=== PATIENT | female | born 1945 | race Asian ===

== ENCOUNTER 2019-04-16 17:56 | Inpatient (IN) | payer MEDICARE, MEDICAID ==
[~2019-04-16] VITALS: Ht 154.9 cm; Wt 61.7 kg
--- NOTE | 2019-04-16 18:00 | NUR ---
pt was given ativan/haldol/benadryl [facility]. pt lethargic.
[2019-04-16] MEDS ORDERED: IBUP-1953 PO (18:04)
[2019-04-16] MEDS ORDERED: ONDA4TAB5 PO (18:05)
--- NOTE | 2019-04-16 18:18 | NUR ---
CALLED NURSING ENVIRONMENTAL PROFESSIONAL, ISABEL Isaac, REQUESTED FOR SITTER FOR SAFETY PRECAUTIONS. INFORMED NONE AVAILABLE AT THIS TIME.
--- NOTE | 2019-04-16 18:48 | NUR ---
pt transfered to u.
--- NOTE | 2019-04-16 19:00 | NUR ---
Patient is a 73 year old female, brought in to the hospital by ambulance from [facility]. Patient is admitted on a 5150 for DTS. Patient brought self to the ER on advice from her PCP. Statements were made such as " I just cant control myself " " usually it goes away but I feel worse and worse'. Patient has been having increased suicidal thoughts with a plan of taking an overdose of pills. Upon face to face evaluation, patient admits to having suicidal thoughts.Patient has poor eye contact, and stated " I am too tired to talk right now. I am cold and I just want to sleep". Speech is slow and patient noted to mumble. V.S. are stable, Patient appears clean and well groomed. Suicide precautions are in place, with frequent head checks. Patients rights handbook and advisement given. No acute distress noted, continuing to monitor for safety. Patient declined having any family notified of the admission at this time.
[2019-04-16] MEDS ORDERED: TEMAZEPAM 7.5 MG CAPSULE PO PRN (20:00)
[2019-04-16] MEDS ORDERED: ACETAMINOPHEN 325 MG TABLET PO PRN ×2 (20:00)
[2019-04-16] MEDS ORDERED: CLONAZEPAM 0.5 MG TABLET PO PRN (20:00)
[2019-04-16] MEDS ORDERED: MAG HYDROX/AL HYDROX/SIMETH 30 ML LIQUID UDC PO PRN (20:00)
[2019-04-16] MEDS ORDERED: MAGNESIUM HYDROXIDE 30 ML LIQUID UDC PO PRN (20:00)
[2019-04-16] MEDS ORDERED: BLOOD SUGAR DIAGNOSTIC 1 EACH STRIP VI ONE (20:00)
[2019-04-16 20:16] VITALS: BP 102/50
[2019-04-16] MEDS: DOCUSATE SODIUM 100 MG CAPSULE PO SCH (21:00)
--- NOTE | 2019-04-17 05:18 | NUR ---
Patient slept 7.15 hours and is still asleep. Frequent monitoring during the night to assure patient safety. No acute distress , and no verbalization of wanting to hurt herself. Up one time to use the bathroom, steady gait noted. Continuing to monitor closely.
[2019-04-17 07:16] LABS: BASOPHILS # (AUTO) 0.1 K/uL (0.0-8.0); BASOPHILS % (AUTO) 1.1 % (0.0-2.0); EOSINOPHILS # (AUTO) 0.3 K/uL (0.0-0.7); EOSINOPHILS % (AUTO) 5.5 % (0.0-7.0); HEMATOCRIT 39.6 % (31.2-41.9); HEMOGLOBIN 13.2 g/dL (10.9-14.3); LYMPHOCYTES # (AUTO) 1.9 K/uL (20.0-40.0); LYMPHOCYTES % (AUTO) 38.6 % (20.5-51.5); MEAN CORPUSCULAR HEMOGLOBIN 30.7 uug (24.7-32.8); MEAN CORPUSCULAR HGB CONC 33 g/dL (32.3-35.6); MEAN CORPUSCULAR VOLUME 92.1 fL (75.5-95.3); MONOCYTES # (AUTO) 0.4 K/uL (2.0-10.0); MONOCYTES % (AUTO) 8.8 % (0.0-11.0); NEUTROPHILS # (AUTO) 2.3 K/uL (1.8-8.9); PLATELET COUNT (AUTO) 201 K/uL (179-408)
--- NOTE | 2019-04-17 07:36 | NUR ---
GPS: RECEIEVED PATIENT ASLEEP ON BED, AOX3, PATIENT IN NO DISTRESS AT THIS MOMENT
[2019-04-17 07:41] VITALS: BP 90/51
[2019-04-17 07:44] LABS: THYROID STIMULATING HORMONE 1.992 mIU/mL (0.358-3.740)
[2019-04-17 07:55] LABS: BILIRUBIN,TOTAL 0.7 mg/dL (0.2-1.0); CREATININE 0.8 mg/dL (0.6-1.3); MAGNESIUM 2.4 mg/dL (1.8-2.4); PHOSPHOROUS 3.5 mg/dL (2.5-4.9); POTASSIUM 4.1 mmol/L (3.5-5.1); TOTAL PROTEIN, SERUM 6.6 g/dL (6.4-8.2)
[2019-04-17] MEDS: ESCITALOPRAM OXALATE 10 MG TABLET PO SCH (10:04)
[2019-04-17] MEDS ORDERED: LEVO50TA PO (13:25)
--- NOTE | 2019-04-17 15:43 | NUR ---
Family Contact: SW was unable to reach family member Jason Stewart ([phone]), phone number was incorrect.
[2019-04-17 16:14] VITALS: BP 105/50
--- NOTE | 2019-04-17 16:29 | NUR ---
INITIAL DISCHARGE: Pt currently resides alone at her apartment at [address], [place] [address]; ([phone]). Per pt, she would like to go back home. SW will work with the pt and the MD regarding appropriate discharge planning. SW will form a safe and proper discharge.
--- NOTE | 2019-04-17 16:34 | NUR ---
GPS: patient AOx4, calm cooperative, took shower, denies any SI and HI, patient took shower and been ambulating in the hallway, able to make her needs known, compliant with medication,will continue monitor
[2019-04-17 20:05] VITALS: BP 113/55
[2019-04-17] MEDS: DOCUSATE SODIUM 100 MG CAPSULE PO SCH (21:00)
[2019-04-17] MEDS: ATORVASTATIN 20 MG TABLET PO SCH (21:00)
[2019-04-18] MEDS: LEVOTHYROXINE SODIUM 50 MCG TABLET PO SCH (06:28)
--- NOTE | 2019-04-18 07:30 | NUR ---
Recieved pt lying in bed reading a magazine. In good spirit. Awake, alert and orientex3. Very cooperative.
[2019-04-18 07:52] VITALS: BP 109/53
[2019-04-18] MEDS: ESCITALOPRAM OXALATE 10 MG TABLET PO SCH (08:32)
[2019-04-18 16:00] VITALS: BP 112/58
--- NOTE | 2019-04-18 17:30 | NUR ---
Pt is doing very well all day. Joined the social group activity without any problem.
[2019-04-18] MEDS: DOCUSATE SODIUM 100 MG CAPSULE PO SCH (20:28)
[2019-04-18] MEDS: ATORVASTATIN 20 MG TABLET PO SCH (20:29)
[2019-04-18 20:30] VITALS: BP 111/54
[2019-04-19] MEDS: LEVOTHYROXINE SODIUM 50 MCG TABLET PO SCH (05:35)
--- NOTE | 2019-04-19 06:56 | NUR ---
PT SLEPT 6.15 HOURS. PT SHOWS NO SIGNS OF ACUTE DISTRESS. PT COMPLIANT WITH CARE. PRESCRIBED MEDICATION GIVEN AND PT TOLERATED IT WELL. SAFETY AND COMFORT PROVIDED. WILL ENDORSE TO INCOMING NURSE FOR CONTINUITY OF CARE.
[2019-04-19 07:30] VITALS: BP 111/54
[2019-04-19] MEDS: ESCITALOPRAM OXALATE 10 MG TABLET PO SCH (08:27)
--- NOTE | 2019-04-19 13:20 | NUR ---
Contact Family: SW contacted pts daughter, Jason Palacios ([phone]) that pt will be discharged to home and if she can pick pt up from [facility]. Pts daughter agreed to grape picker pt 04/19/19 at 3PM.
--- NOTE | 2019-04-19 13:30 | NUR ---
DISCHARGE: Patient will be discharged back home [[address], [place] [address]], pts daughter, Jason Palacios will picker box operator pt on 04/19/19 at 3PM. RICARDO spoke with Jason Palacios [patients daughter; ] who is aware and agreeable with discharge plans. Patient is alert and oriented x4, and is able to plan for self-care. Patient denies any suicidal or homicidal ideation. Patient is aware and agreeable with discharge plans. Patient will follow up with her Primary Care Physician Dr. Gonzalez (civil engineering specialist) and will follow up if there is any medical concerns. Pt is referred to [facility] ([phone]) for follow ups regarding individual counseling. Pt was given a list of medicare accepting psychiatrists for follow ups. RICARDO encouraged pt to follow up with a psychiatrist for her mental health needs. Pt presented with euthymic mood and congruent affect during discharge.
--- NOTE | 2019-04-19 15:05 | NUR ---
Discharged instructions given to patient regarding medication to continue at home, prescription given and instructed to filled it to her pharmacy- patient verbalized understanding. We're waiting for her daughter to pick her up.
--- NOTE | 2019-04-19 15:44 | NUR ---
PT LEFT UNIT ACCOMPANIED BY DAUGHTER. PT CALM AND COOPERATIVE. AOX4. PLEASANT UPON APPROACH. LEFT WITH ALL NOTED BELONGINGS AND PAPERWORK. DENIES SUICIDAL AND HOMICIDAL IDEATIONS. V/S STABLE. IN NO ACUTE DISTRESS.
[2019-04-20] MEDS ORDERED: ESCITALOPRAM OXALATE 10 MG TABLET PO SCH (09:00)
== END 2019-04-19 15:45 | disposition home or self-care (01) | DRG 885 ==
LOC: ER 17:59 → GPS 18:47
PROVIDERS: ADMIT Psychiatry & Neurology Psychiatry; ATTEND Nurse Practitioner Acute Care
DX: F33.2 Major depressive disorder, recurrent severe without psychotic features (principal); E03.9 Hypothyroidism, unspecified; E78.5 Hyperlipidemia, unspecified; Z79.890 Hormone replacement therapy
CPT/HCPCS: 36415; 83735; 84100; 84443; 85025; A4663